=== PATIENT | male | born 1940 | race American Indian/Alaskan Native ===

== ENCOUNTER 2017-08-26 22:11 | Emergency (ER) | payer MEDICARE ==
[2017-08-26] MEDS ORDERED: INTROPIN DRIP 800 MG/D5W 250 ML 800 MG/250 ML BAG IV ONE (22:51)
--- NOTE | 2017-08-27 00:05 | Emergency Department Report ---
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 He was at home fatigue all day and was laying down with family monitoring respirations when he quit breathing. EMS was called but it sounds that CPR was not started for over 13 minutes until EMS arrived. When EMS arrived he was initially asytole and CPR was started with epi given. Then a rhythm of vfib was noted so he was shocked a pulse was noted. He was given amiodarone 300 mg and started on a drip. He was also intubated. He continued to have a pulse from 30s to 110s. On arrival to the ED he had a pulse in the 30s. We palpated a weak pulse. Dopamine drip was started and pulse initially responded up to the 50s but we never got a blood pressure reading. After 7 minutes his rate was in the 20s to 30s with dopamine. I attempted to palpate a pulse and could not palpate one. CPR was restarted. I examined him for gag reflex and observed eyes which were dilated fixed and unresponsive. I told the staff to continue CPR and went to talk to the family. They agreed to discontinue CPR and remove all care. I explained that the patient was brain by exam and c/w his not receiving CPR after respiratory failure. I went back to the patient and reexamined. We pronounced the patient around 10:29 pm on 08/27/17. MD Complaint: found unresponsive Bystander CPR Performed: No AED Applied by Bystander/Centrifugal Chiller Technician: Yes (EMS) Shock Advised: Yes Number of Shocks Delivered: 1 Downtime Before ACLS Arrival (mins): 13 Initial Findings in the Field: unresponsive ROSC in the Field: Yes (after epi x 1 and a shot. 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 ED Physical Exam - General Limitations: Other (unresponsive) General appearance: obtunded - Head Head exam: Present: atraumatic, normocephalic - Eye Pupils: Present: other (dilated, fixed and unresponsive.) - Neck Neck exam: Present: other (non-palpable carotid) - Respiratory Respiratory exam: Present: other (good breath sounds with bag intubation but no spontaneous respirations.) - Cardiovascular Cardiovascular Exam: Present: other (pulseless and no cardiac sounds.) - GI/Abdominal GI/Abdominal exam: Present: soft, other (no bowel sounds.) - Neurological Exam Neurological exam: Present: other (No gag reflex. Unresponsive to pain.) ED Medical Decision Making - Medical Decision Making Patient was made DNR with family and CPR was stopped. Patient had already had brain . Family was counseled and patient will be transported to home. Cause of was brain secondary to hypoxia secondary to cardiac arrest secondary to respiratory failure from metastatic sarcoma. Critical care attestation.: If time is entered above; I have spent that time in minutes in the direct care of this critically ill patient, excluding procedure time. ED Disposition Clinical Impression: Cardiopulmonary arrest Disposition: DC-20 Is pt being admited?: No Does the pt Need Aspirin: No Condition: Critical
== END 2017-08-27 03:05 ==
LOC: ED 22:11
DX: I46.9 Cardiac arrest, cause unspecified (principal); C49.9 Malignant neoplasm of connective and soft tissue, unspecified
CPT/HCPCS: 92950; 99285; J1265